=== PATIENT | male | born 1980 | race Caucasian/White ===

== ENCOUNTER 2024-10-05 04:20 | Observation (INO) | payer MEDICAID, SELFPAY ==
[2024-10-05] VITALS (21 sets, daily range): BP systolic 120–153; BP diastolic 70–94; PULSE 76–105; RESP 12–20; TEMP 36.1–37.1; O2SAT 93–100; BMI 31.9
--- NOTE | ~2024-10-05 | XR_ITS ---
AP and lateral views of the left tibia/fibula Clinical History: Trauma Findings: There is acute, oblique, mildly displaced fracture the distal fibular shaft, extending prox imally from the level ankle mortise for 6 cm. There is transverse displaced fracture through the medi al malleolus, with marked widening of the medial aspect of the ankle mortise. Soft tissues are unrema rkable. Impression: Displaced bimalleolar fractures at the ankle, as detailed above. Reviewed, dictated and finalized at location . Impression: Displaced bimalleolar fractures at the ankle, as detailed above.
--- NOTE | ~2024-10-05 | XR_ITS ---
Left ankle Technique: AP, oblique, and lateral views were obtained. Clinical History: Injury Findings: There is transverse fractures of the medial malleolus, with significant displacement and ma rked widening of the medial aspect of the ankle mortise. There is acute, oblique, mildly displaced fr acture of the distal fibular shaft extending from the level of the ankle mortise plexus 6 cm proximal to this level. No posterior malleolus fracture seen. Soft tissues are otherwise unremarkable. Impression: Acute, displaced bimalleolar fractures, with significant derangement of the ankle mortise, as detaile d above. Reviewed, dictated and finalized at location M. Impression: Acute, displaced bimalleolar fractures, with significant derangement of the ank le mortise, as detailed above.
--- NOTE | ~2024-10-05 | XR_ITS ---
INTRAOPERATIVE FLUOROSCOPY: CLINICAL HISTORY: 44 years old Male; LEFT ORIF ANKLE PROCEDURE COMMENTS: Limited intraoperative fluoroscopy of the left ankle was performed. CUMULATIVE DOSE: 5.7 mGy FLUOROSCOPY TIME: 129 seconds FINDINGS/IMPRESSION: Please refer to operative note for further details. Reviewed, dictated and finalized at location A.
--- NOTE | ~2024-10-05 | XR_ITS ---
Left foot Technique: AP, oblique, and lateral views were obtained. Clinical History: Injury Findings: No acute fracture or dislocation is seen in the foot itself. Bimalleolar fractures are note d at the ankle. Joint spaces are preserved without erosive or degenerative change. Soft tissues are u nremarkable. Impression: No acute abnormality in the foot itself. Bimalleolar fractures at the ankle are noted. [facility]. Reviewed, dictated and finalized at location . Impression: No acute abnormality in the foot itself. Bimalleolar fractures at the ankle are noted. Please see separately reported ankle radiographic series for further de tails.
--- OUTSIDE RECORDS SUMMARY | 2024-10-05 04:22 | XMS_ITS | Continuity of Care Document ---
Author Name Huma Smart Address [address] [facility] [place] [address] Organization Unknown Address [address] [place] [address] [address] [place] [address] Medications No known medications Problems No known problems
--- OUTSIDE RECORDS SUMMARY | 2024-10-05 04:22 | XMS_ITS | Continuity of Care Document ---
Author Organization [facility] Address [address] [facility] [place] [address] Phone Care Team Providers Care Cement Railroad Car Loader Name Role Phone Danny Vallecillo MD Unavailable Unavailable Advance Directives Directive Yes / No Effective Date File Name No Information Encounters Encounter Description Practice Location Reason(s) For Visit Diagnoses Date Provider Providers Copied on Encounter [facility], [address] [place], [id number], [place] tel:[phone] [facility] No Information Avel Delgado. [address] [place], [id number], [place]. tel:[phone] Family History Family Member Type Diagnosis Age At Onset No Information Payers Payer name Insurance type Covered green party ID Authoriza tion(s) No Information Social History Type Description Quantity Date Captured Comments Sex Male Smoking Status No Information Chief Complaint And Reason For Visit No Information Plan Of Treatment Date Type Action Status No Information History Of Present Illness Encounter Date Complaint History Of Prese nt Illness No Information Instructions Date Instruction Additional Infor mation No Information Assessments Type Assessment Date No Information
--- OUTSIDE RECORDS SUMMARY | 2024-10-05 04:22 | XMS_ITS | Continuity of Care Document ---
Author Name Huma Smart Address [address] [facility] [place] [address] Organization Unknown Address [address] [place], [place] [id number] [place] [address] Medications No known medications Problems No known problems
--- NOTE | 2024-10-05 04:29 | ED_ITS ---
HPI - General Adult General Chief complaint: Extremity Injury, Lower Stated complaint: ankle injury Time Seen by Provider: 10/05/24 04:23 History of Present Illness HPI narrative: Patient is a 44-year-old male who presents to the emergency department this morning status post a left ankle injury. Patient jumped off the back of his pickup truck on uneven ground and rolled his left ankle. Patient states that immediately he felt a crack. Excruciating left ankle pain and inability to bear weight on his left foot. Denies hitting his head and denies any additional injuries or concerns at this time. Related Data Allergies Allergy/AdvReac Type Severity Reaction Status Date / Time No Known Allergies Allergy Verified 10/05/24 04:29 Review of Systems 2 Review of Systems: All systems are reviewed and are negative unless stated otherwise in the HPI. Exam 2 Narrative: General: Alert, awake, afebrile, in no acute distress. HEENT: PERRL, no rhinorrhea, no post nasal drip, oropharynx clear. Neck: Trachea midline, no JVD, no lymphadenopathy. Cardiovascular: Regular rate and rhythm, no murmurs, rubs or gallops, no peripheral edema. Respiratory: Clear to auscultation bilaterally, no tachypnea, no wheezing, no rhonchi, no rubs, no respiratory distress. Abdomen: Soft, nontender, nondistended, no rebound, no guarding, no peritoneal signs. Musculoskeletal: Left ankle joint swelling and bruising noted to medial and lateral malleoli, no tenderness palpation noted along the midfoot or the base of the 5th metatarsal, no tenderness palpation over the proximal fibula, intact full range of motion at the left knee joint and left hip joint, patient is neurovascularly intact. Skin: No rashes or petechia, no signs of infection. Psychiatric: Alert and oriented, normal behavior and judgment for situation. Neurological: Alert and oriented to person, place, and time. Follows all commands. No focal deficits, speech is clear and fluent. Course Vital Signs Vital signs: Vital Signs Temperature 98.2 F 10/05/24 04:22 Pulse Rate 102 H 10/05/24 04:22 Respiratory Rate 20 10/05/24 04:22 Blood Pressure 153/85 H 10/05/24 04:22 Pulse Oximetry 95 10/05/24 04:22 Oxygen Delivery Room Air 10/05/24 04:22 Temperature 98.2 F 10/05/24 04:28 Pulse Rate 94 10/05/24 06:26 Respiratory Rate 19 10/05/24 06:26 Blood Pressure 129/84 10/05/24 06:26 Pulse Oximetry 95 10/05/24 06:26 Oxygen Delivery Room Air 10/05/24 04:22 Medical Decision Making MDM Narrative Medical decision making narrative: The patient was evaluated by myself in the emergency department. History is obtained from patient who is an independent historian and physical exam was performed. External medical records were reviewed at this time. IV was established and pertinent tests were ordered. Patient was administered a total of 8 mg of IV morphine and 4 mg IV Zofran for pain/nausea. Patient is requesting a DuoNeb breathing treatment as he states he has been out of his inhaler. Blood work was obtained and independently interpreted by me revealing no acute process. Imaging studies obtained included left foot, ankle and tib-fib x-rays which was independently interpreted by me revealing a left afshin fracture, which is pending final radiology interpretation. Differential diagnosis considerations include fractures, dislocation, ankle sprain. Comorbidities impacting this visit include none. I have evaluated and discussed social determinants of health with the patient that could potentially impact subsequent diagnosis and treatment plans. On repeat assessment of the patient, reevaluation revealed that the patient is doing well and is in no acute distress. Patient symptoms have improved since he arrived to our emergency department. Repeat vital signs were all reviewed and noted to be stable. Differential diagnosis and treatment plan were discussed with the patient at bedside. Case was discussed with the on-call orthopedic surgeon Dr. Law at 0530 who plans to take the patient to the OR for operative repair later today. Per his request, patient will be admitted to our general medicine team with him as a consult. Patient was made NPO at this time, started on maintenance fluids with normal saline at 100 cc/hour. Patient was placed in a posterior short-leg splint with stirrup at this time pending OR repair. Patient was administered 0 4 and 5 mg of IV Dilaudid at this time for pain. Case discussed with the on-call hospitalist Dr. Meyers at 0615 and he accepted admission. Patient was admitted to our general medical floor in stable condition. Vital Signs Vital Signs: Vital Signs Temperature 98.2 F 10/05/24 04:22 Pulse Rate 102 H 10/05/24 04:22 Respiratory Rate 20 10/05/24 04:22 Blood Pressure 153/85 H 10/05/24 04:22 Pulse Oximetry 95 10/05/24 04:22 Oxygen Delivery Room Air 10/05/24 04:22 Temperature 98.2 F 10/05/24 04:28 Pulse Rate 94 10/05/24 06:26 Respiratory Rate 19 10/05/24 06:26 Blood Pressure 129/84 10/05/24 06:26 Pulse Oximetry 95 10/05/24 06:26 Oxygen Delivery Room Air 10/05/24 04:22 Lab Data 10/05/24 06:23 10/05/24 06:23 Discharge Plan Discharge Clinical Impression: Closed bimalleolar fracture of left ankle Patient Disposition: Still a Patient Condition: Improved Time of Disposition: 05:33
[2024-10-05] MEDS: MORPHINE SULFATE (*CRX) 4 MG/ML INJ IV PUSH ×2 (04:34→05:35)
[2024-10-05] MEDS: ONDANSETRON INJ 4 MG/2 ML VIAL IV PUSH ×2 (04:34→05:35)
--- OUTSIDE RECORDS SUMMARY | 2024-10-05 05:03 | XMS_ITS | Continuity of Care Document ---
Author Organization [facility] Address [address] [facility] [place] [address] Phone Care Team Providers Care Refrigeration Installer Name Role Phone Danny Vallecillo MD Unavailable Unavailable Advance Directives Directive Yes / No Effective Date File Name No Information Encounters Encounter Description Practice Location Reason(s) For Visit Diagnoses Date Provider Providers Copied on Encounter [facility], [address] [place], [id number], [place] tel:[phone] [facility] No Information Avel Delgado. [address] [place], [id number], [place]. tel:[phone] Family History Family Member Type Diagnosis Age At Onset No Information Payers Payer name Insurance type Covered alliance party ID Authoriza tion(s) No Information Social [...]
[2024-10-05] MEDS: SODIUM CHLORIDE 0.9% IV 1,000 ML 100 ML IV CONT (06:19)
[2024-10-05] MEDS: HYDROmorphone HCL INJ (*CRX) 2 MG/ML VIAL 0.5 MG IV PUSH ×2 (06:19→20:24)
[2024-10-05 06:28] LABS: Basophils Percent Auto 0.4 % (0.2-1.2); Eosinophils Absolute Auto 0.1 K/mm3 (0-0.3); Eosinophils Percent Auto 1.2 % (0-4.4); Hematocrit 40.2 % (42.0-52.0); Hemoglobin 13.1 g/dL (14.0-18.0); Immature Granulocyte Absolute 0.02 K/mm3 (0.00-0.031); Immature Granulocyte Percent A 0.3 % (0-0.5); Lymphocytes Absolute Auto 1.01 K/mm3 (0.9-3.2); Mean Corpuscular HGB Conc 32.6 g/dl (32-36); Mean Corpuscular Hemoglobin 29.2 pg (26-34); Mean Corpuscular Volume 89.5 fl (80-100); Mean Platelet Volume 9.6 fl (7.4-10.4); Monocytes Absolute Auto 0.9 K/mm3 (0.1-0.6); Neutrophils Absolute Auto 5.7 K/mm3 (1.3-6.7); Neutrophils Percent Auto 73.1 % (45.5-73.1); Platelet Count Result 207 k/mm3 (150-375); Red Blood Count 4.49 M/mm3 (4.6-6.20); Red Cell Distribution Width 13.3 % (11.5-14.5); White Blood Count 7.8 K/mm3 (4.5-10.0)
[2024-10-05 06:51] LABS: Alanine Aminotransferase 31 U/L (6-50); Albumin Level 3.8 g/dL (3.5-5.1); Alkaline Phosphatase 75 U/L (38-126); Anion Gap 7 mmol/L (4-12); Aspartate Amino Transferase 47 U/L (17-59); Bilirubin,Total 0.6 mg/dL (0.2-1.3); Blood Urea Nitrogen 13 mg/dL (9-20); Calcium 8.1 mg/dL (8.4-10.2); Carbon Dioxide 26 mmol/L (22-30); Chloride 101 mmol/L (98-107); Estimated CRCL calculation 111 ml/min; Estimated Glomerular Filt Rate > 60; Glucose 103 mg/dL (65-110); Magnesium 2.2 mg/dL (1.6-2.3); Sodium 134 mmol/L (137-145)
--- OUTSIDE RECORDS SUMMARY | 2024-10-05 08:15 | XMS_ITS | Continuity of Care Document ---
Author Organization [facility] Address [address] [facility] [[email or web address] [place] [address] Phone Care Team Providers Care Body Art Technician Name Role Phone Danny Vallecillo MD Unavailable Unavailable Advance Directives Directive Yes / No Effective Date File Name No Information Encounters Encounter Description Practice Location Reason(s) For Visit Diagnoses Date Provider Providers Copied on Encounter [facility], [address] [place], [id number], [place] tel:[phone] [facility] No Information Avel Delgado. [address] [place], [id number], [place]. tel:[phone] Family History Family Member Type Diagnosis Age [...]
[2024-10-05] MEDS: IPRATROPIUM 0.5 MG/ALBUTEROL SULFATE 2.5 MG AMPUL.NEB 3 ML INHALATION (08:22)
--- NOTE | 2024-10-05 08:43 | P.HP_ITS ---
H&P: HPI History of Present Illness Date/Time: 10/05/24 08:43 Chief Complaint: Left ankle pain Narrative: Patient is a 44-year-old male with history of asthma, present ED with a chief complaint of left ankle pain. Patient jump of pickup truck and sustained left ankle pain. The pain was severe, patient could not bear weight on the left food. Therefore patient came to ED for evaluation treatment. Patient also complaining of cough with thick phlegm in more than a week, denies fever or chills. And patient also complained of wheezing intermittently. Patient has history of asthma Patient denies headache, chest pain, shortness breast, abdomen pain, nausea vomiting diarrhea dysuria. Upon arrival to ED, patient was afebrile, blood pressure stable, no O2 desaturation on room air, CBC showed hemoglobin 13.1 chemistry reveals sodium 134, Ankle x-ray showed acute, displaced bimalleolar fractures, with significant derangement of the ankle mortise, PMFSH Family History Family History (Updated 10/05/24 @ 10:05 by Wendy Emery RN) Father Cancer Diabetes mellitus Social History Social History Smoking status: Former smoker Tobacco type: cigarettes Alcohol intake: current Drinks per week: 2 Substance use: former Substance use type: crack/cocaine, hallucinogens and methamphetamine Last use: 10/05/2022 Do You Feel Safe in your Home?: Yes Lack of Transportation: No Lack of Food: Never True Current Housing: I Have Housing Concerned About Future Housing: No Difficulty Paying Gas/Electric Bills: No Difficulty Paying for Meds: No Currently Unemployed: No Education: Don't Know Difficulty w/ Childcare or Family Care: No Spiritual care concerns: No Meds Home Medications and Allergies Home Medications ?Medication ?Instructions ?Recorded ?Confirmed ?Type aspirin 81 mg capsule 81 mg PO DAILY 10/05/24 10/05/24 History atorvastatin 40 mg tablet (Lipitor) 40 mg PO DAILY 10/05/24 10/05/24 History Allergies Allergy/AdvReac Type Severity Reaction Status Date / Time barbeque Allergy Vomiting Uncoded 10/05/24 10:18 Vital Signs Vital Signs - 24 hr 10/05/24 04:22 10/05/24 04:28 10/05/24 06:26 Temperature 98.2 F 98.2 F Pulse Rate 102 H 99 94 Respiratory Rate 20 18 19 Blood Pressure 153/85 H 153/85 H 129/84 Pulse Oximetry 95 95 95 Oxygen Delivery Room Air Exam Narrative: GENERAL: Pleasant, in no acute distress. Well-nourished. - EYES: EOMI. Anicteric. - HENT: Moist mucous membranes. - LUNGS: Clear to auscultation bilateral ly, no wheezing, rhonchi, or rales. - CARDIOVASCULAR: Regular rate and rhyth m. No murmur. No JVD. - ABDOMEN: Soft, non-tender and non-dist ended. No palpable masses. - EXTREMITIES: Restricted movement of l eft ankle because of pain. No edema. Peripheral pulses 2+. Non-tender. - NEUROLOGIC: No focal neurological defi cits. CN II-XII grossly intact. - PSYCHIATRIC: Awake, Alert and oriented x 3. Appropriate mood and affect. - SKIN: No rashes or lesions. Warm. - LYMPH: No cervical lymphadenopathy. H&P: Results Labs Labs: Short CBC 10/05/24 Range/Units 06:23 WBC 7.8 (4.5-10.0) K/mm3 Hgb 13.1 L (14.0-18.0) g/dL Hct 40.2 L (42.0-52.0) % Plt Count 207 (150-375) k/mm3 BMP 10/05/24 06:23 Sodium 134 L Potassium 4.0 Chloride 101 Carbon Dioxide 26 BUN 13 Creatinine 0.96 Glucose 103 Calcium 8.1 L Liver Function 10/05/24 Range/Units 06:23 Total Bilirubin 0.6 (0.2-1.3) mg/dL AST 47 (17-59) U/L ALT 31 (6-50) U/L Alkaline Phosphatase 75 (38-126) U/L Albumin 3.8 (3.5-5.1) g/dL Assessment and Plan Assessment and plan (1) Closed bimalleolar fracture of left ankle: Code(s): S82.842A - Displaced bimalleolar fracture of left lower leg, initial encounter for closed fracture Status: Acute (2) Hyponatremia: Code(s): E87.1 - Hypo-osmolality and hyponatremia Status: Acute (3) Anemia: Code(s): D64.9 - Anemia, unspecified Status: Acute (4) Acute bacterial bronchitis: Code(s): J20.8 - Acute bronchitis due to other specified organisms; B96.89 - Other specified bacterial agents as the cause of diseases classified elsewhere Status: Acute (5) Asthma: Code(s): J45.909 - Unspecified asthma, uncomplicated Status: Acute Plan Left ankle fracture X-ray showed acute, displaced bimalleolar fractures, with significant derangement of the ankle mortise,. Optimize pain management Consult orthopedic surgeon for evaluation treatment Start PT OT when is cleared by orthopedic surgeon Acute bacterial bronchitis Patient has been having productive cough more than a week, patient also has intermittent wheezing Possible bacterial bronchitis Will start azithromycin 500 mg IV daily Albuterol nebulizer q.6 hours scheduled Hyponatremia Sodium 134 Marginally low Follow-up BMP Anemia hemoglobin 13.1 Marginally low No obvious bleeding Follow-up CBC Hospitalist MIPS Advance Care Plan I have confirmed that the patient's Advanced Care Plan is present, code status is documented, or surrogate decision maker is listed in patient medical record.: Yes Medication Reconciliation The patient is not eligible for med reconciliation; the patient is in a emergent medical situation where delaying treatment would jeopardize the patients health.: Yes
--- NOTE | 2024-10-05 09:59 | ADMGEN ---
This patient, [address], was admitted to [address] [facility] Surg Room 323-02. Patient/family oriented to hospital policies and general routines including ID bracelet, bed and alarms, visiting hours, pain management, procedures, bathroom and other care routines, personal items, smoking policy, room service/diet, and visiting hours. Information on how to activate the Rapid Response Team has been discussed. Patient/Family are encouraged to report perceived risks to care and to ask questions if they do not understand what they are told or what they should do. welder 2nd shift got report from ER.
--- NOTE | 2024-10-05 11:07 | PC.NURSE ---
To OR per [ ], IV [ ]. Report given to [ROLLY].
--- NOTE | 2024-10-05 12:18 | WPDANESEPPF ---
Anes - Initial Pre Proc Eval Procedure: Operation Date: 10/05/24 12:30 Proposed Procedures p Open Reduction Internal Fixation Left Bimalleolar Ankle Fracture(Left) - Shravan Law MD Date/Time: 10/05/24 12:18 Surgeon: John Nix MD Pre Op Diagnosis: left bimalleolar ankle fracture,plan for or today Patient Data Age: 44 Gender: M Height: 1.8 m Weight: 103.9 kg Last Vital Signs Temp 37.1 C 10/05/24 11:41 Pulse 80 10/05/24 11:41 Resp 20 10/05/24 11:41 BP 126/70 10/05/24 11:41 Pulse Ox 93 10/05/24 11:41 O2 Del Method Room Air 10/05/24 11:41 Allergies Allergy/AdvReac Type Severity Reaction Status Date / Time barbeque Allergy Vomiting Uncoded 10/05/24 10:18 Home Medications ?Medication ?Instructions ?Recorded ?Confirmed ?Type aspirin 81 mg capsule 81 mg PO DAILY 10/05/24 10/05/24 History atorvastatin 40 mg tablet (Lipitor) 40 mg PO DAILY 10/05/24 10/05/24 History Laboratory Tests 10/05/24 10/05/24 06:23 06:43 WBC 7.8 K/mm3 (4.5-10.0) RBC 4.49 L M/mm3 (4.6-6.20) Hgb 13.1 L g/dL (14.0-18.0) Hct 40.2 L % (42.0-52.0) MCV 89.5 fl (80-100) MCH 29.2 pg (26-34) MCHC 32.6 g/dl (32-36) RDW 13.3 % (11.5-14.5) Plt Count 207 k/mm3 (150-375) MPV 9.6 fl (7.4-10.4) Immature Gran % (Auto) 0.3 % (0-0.5) Neut % (Auto) 73.1 % (45.5-73.1) Lymph % (Auto) 13.0 L % (18.3-44.2) [place] % (Auto) 12.0 H % (2.6-8.5) Eos % (Auto) 1.2 % (0-4.4) Baso % (Auto) 0.4 % (0.2-1.2) Lymph # (Auto) 1.01 K/mm3 (0.9-3.2) [place] # (Auto) 0.9 H K/mm3 (0.1-0.6) Eos # (Auto) 0.1 K/mm3 (0-0.3) Baso # (Auto) 0.0 K/mm3 (0.0-0.1) Abs Immat Gran (auto) 0.02 K/mm3 (0.00-0.031) Absolute Neuts (auto) 5.7 K/mm3 (1.3-6.7) Absolute Nucleated RBC 0.000 K/mm3 (0.0-0.012) Nucleated RBC % 0.0 % (0.0-0.2) Sodium 134 L mmol/L (137-145) Potassium 4.0 mmol/L (3.4-5.0) Chloride 101 mmol/L (98-107) Carbon Dioxide 26 mmol/L (22-30) Anion Gap 7 mmol/L (4-12) BUN 13 mg/dL (9-20) Creatinine 0.96 mg/dL (0.7-1.3) Estim Creat Clear Calc 111 ml/min Estimated GFR > 60 (59 - ) Glucose 103 mg/dL (65-110) Calcium 8.1 L mg/dL (8.4-10.2) Magnesium 2.2 mg/dL (1.6-2.3) Total Bilirubin 0.6 mg/dL (0.2-1.3) AST 47 U/L (17-59) ALT 31 U/L (6-50) Alkaline Phosphatase 75 U/L (38-126) Total Protein 7.0 g/dL (6.3-8.2) Albumin 3.8 g/dL (3.5-5.1) Blood Type O Positive Antibody Screen Negative Patient hx anesthesia problems: none Family hx anesthesia problems: none Results Review: All pre-operative results and documents have been reviewed as part of the pre-operative evaluation. [facility] Family History Family History Father Cancer Diabetes mellitus Social History Social History Smoking status: Former smoker Tobacco type: cigarettes Alcohol intake: current Drinks per week: 2 Substance use: former Substance use type: crack/cocaine, hallucinogens and methamphetamine Last use: 10/05/2022 Do You Feel Safe in your Home?: Yes Lack of Transportation: No Lack of Food: Never True Current Housing: I Have Housing Concerned About Future Housing: No Difficulty Paying Gas/Electric Bills: No Difficulty Paying for Meds: No Currently Unemployed: No Education: Don't Know Difficulty w/ Childcare or Family Care: No Spiritual care concerns: No Anes - Eval Final PreProcedure Day of Procedure 10/05/24 12:18 Patient weight: obese Heart: regular rate and rhythm Lungs: decreased breath sounds Airway: Mallampati scale class III Neurological: alert and oriented Last oral intake: >/= 8 hours ASA classification: III Emergent: no Anesthetic plan: proceed Anesthesia type and monitoring: general LMA and standard monitoring Results Review: All pre-operative results and documents have been reviewed as part of the pre-operative evaluation. Informed Consent: The patient's anesthetic plan and its attendant risks and benefits were discussed with the patient/family/POA. Questions were solicited and answers provided to the satisfaction of the patient/family/POA.
--- NOTE | 2024-10-05 12:20 | P.CONOP_ITS ---
Assessment and Plan Assessment and plan (1) Closed bimalleolar fracture of left ankle: Code(s): S82.842A - Displaced bimalleolar fracture of left lower leg, initial encounter for closed fracture Status: Acute Assessment and Plan: Patient has a displaced bimalleolar fracture of his left leg. I discussed treatment options with him risks benefits limitations and alternatives. Clearly he would benefit from operative intervention. I have discussed this risks benefits limitations and alternatives in detail. History of Present Illness HPI Consult date: 10/05/24 Chief complaint: left bimalleolar ankle fracture,plan for or today Review of Systems 2 Musculoskeletal: Musculoskeletal: Reports arthralgias, Reports joint swelling and Reports stiffness Neurologic: Reports abnormal gait [facility] Family History Family History Father Cancer Diabetes mellitus Social History Social History Smoking status: Former smoker Tobacco type: cigarettes Alcohol intake: current Drinks per week: 2 Substance use: former Substance use type: crack/cocaine, hallucinogens and methamphetamine Last use: 10/05/2022 Do You Feel Safe in your Home?: Yes Lack of Transportation: No Lack of Food: Never True Current Housing: I Have Housing Concerned About Future Housing: No Difficulty Paying Gas/Electric Bills: No Difficulty Paying for Meds: No Currently Unemployed: No Education: Don't Know Difficulty w/ Childcare or Family Care: No Spiritual care concerns: No Meds Home Medications and Allergies Home Medications ?Medication ?Instructions ?Recorded ?Confirmed ?Type aspirin 81 mg capsule 81 mg PO DAILY 10/05/24 10/05/24 History atorvastatin 40 mg tablet (Lipitor) 40 mg PO DAILY 10/05/24 10/05/24 History Allergies Allergy/AdvReac Type Severity Reaction Status Date / Time barbeque Allergy Vomiting Uncoded 10/05/24 10:18 Vital Signs Vital Signs - 24 hr 10/05/24 04:22 10/05/24 04:28 10/05/24 06:26 Temperature 98.2 F 98.2 F Pulse Rate 102 H 99 94 Respiratory Rate 20 18 19 Blood Pressure 153/85 H 153/85 H 129/84 Pulse Oximetry 95 95 95 Oxygen Delivery Room Air 10/05/24 11:41 Temperature 98.7 F Pulse Rate 80 Respiratory Rate 20 Blood Pressure 126/70 Pulse Oximetry 93 Oxygen Delivery Room Air Exam 2 Narrative: Patient has swelling and pain left ankle still. Neurological wiggle his toes he has pain with any manipulation. Results Labs 10/05/24 06:23 10/05/24 06:23 Labs: Abnormal lab results 10/05/24 Range/Units 06:23 RBC 4.49 L (4.6-6.20) M/mm3 Hgb 13.1 L (14.0-18.0) g/dL Hct 40.2 L (42.0-52.0) % Lymph % (Auto) 13.0 L (18.3-44.2) % [place] % (Auto) 12.0 H (2.6-8.5) % [place] # (Auto) 0.9 H (0.1-0.6) K/mm3 Sodium 134 L (137-145) mmol/L Calcium 8.1 L (8.4-10.2) mg/dL H & H 10/05/24 Range/Units 06:23 Hgb 13.1 L (14.0-18.0) g/dL Hct 40.2 L (42.0-52.0) % All other labs normal.
[2024-10-05] MEDS: HYDROmorphone HCL INJ (*CRX) 1 MG/ML SYR IV PUSH (12:24)
--- NOTE | 2024-10-05 12:28 | WPDHPUPDATE1 ---
History and Physical Update Update Date/Time: 10/05/24 12:28 History and Physical has been reviewed, including an updated exam of the patient. There are NO changes in the patient's condition. Risks, benefits, and alternatives have been discussed and questions answered. Patient agrees to proceed with procedure.
[2024-10-05] MEDS: ceFAZolin 2 GM/D5W 50 ML 2 GM/50 ML BAG IVPB (13:14)
--- NOTE | 2024-10-05 14:30 | W.PM.PROC2 ---
Procedure Note - Detailed Date of Procedure 10/05/24 Pre-op Diagnosis LEFT bimalleolar ankle fracture,plan for or today Post-op Diagnosis Same Procedure Performed Open reduction internal fixation bimalleolar fracture Surgeon Shravan Law MD Zinc Chloride Operator Brigitte Garcia Anesthesia General Findings Bimalleolar ankle fracture LEFT Description of Procedure Patient brought to operating room #7. A general anesthetic was administered. He was sterilely prepped and draped in usual manner. He had very large legs. This made it very difficult to do the procedure. A longitudinal incision made. Dissection carried down to the fibula. I began laterally. The fracture was identified held together with lobster claw. An 8 hole plate was then placed. It was very difficult, almost impossible to place an interfragmentary screw, because of the angle of the fracture. I then proceeded medially. Dissection carried down to the fracture. A 4-0 cannulated screw placed. X-rays in the mortise and lateral planes demonstrate near anatomic alignment of the fracture. Fracture was checked for stability under the C-arm. A noted to be stable. Estimated Blood Loss 150 Urine Output 430 Packing No Pathology None sent Complications No immediate complications Condition Stable Disposition PACU [facility] Billing Surgery - Charge Forward: Surgery Billing ([id number] ORIF Bimalleolar Ankle Fracture)
[2024-10-05] MEDS: LACTATED RINGERS 1,000 ML 30 ML IV CONT (14:51)
[2024-10-05] MEDS: HYDROmorphone HCL INJ (*CRX) 1 MG/ML SYR 0.5 MG IV PUSH ×3 (15:20→16:01)
--- NOTE | 2024-10-05 16:02 | PC.NURSE ---
Returned from OR per [ ]. Report received from [Molly ].
[2024-10-05] MEDS: AZITHROMYCIN 500 MG/NS 250 ML 500 MG/250 ML BAG 250 MG IVPB (16:23)
[2024-10-05] MEDS: ALBUTEROL SULFATE NEB 2.5 MG/3 ML INH INHALATION ×2 (16:33→20:17)
--- NOTE | 2024-10-05 16:34 | PCRCNOTE ---
Pt was in OR during 1400 Tx. Nurse called and said that patient was back in room and requesting 1400 Tx.
[2024-10-05] MEDS: HYDROcodone/acetaminophen (*CRX) 7.5-325 MG TABLET 1 TAB PO ×2 (16:50→22:12)
[2024-10-05] MEDS: MORPHINE SULFATE (*CRX) 2 MG/ML INJ 1 MG IV PUSH (18:29)
[2024-10-06] VITALS (15 sets, daily range): BP systolic 127–143; BP diastolic 76–89; PULSE 84–103; RESP 14–20; TEMP 36.2–37.3; O2SAT 96–98
[2024-10-06] MEDS: HYDROmorphone HCL INJ (*CRX) 2 MG/ML VIAL 0.5 MG IV PUSH ×5 (00:41→17:42)
[2024-10-06] MEDS: ALBUTEROL SULFATE NEB 2.5 MG/3 ML INH INHALATION ×4 (02:17→21:00)
[2024-10-06] MEDS: HYDROcodone/acetaminophen (*CRX) 7.5-325 MG TABLET 1 TAB PO ×2 (02:26→08:57)
--- NOTE | 2024-10-06 08:43 | P.PNIM_ITS ---
Progress Note: A&P Assessment and Plan (1) Closed bimalleolar fracture of left ankle: Code(s): S82.842A - Displaced bimalleolar fracture of left lower leg, initial encounter for closed fracture Status: Acute (2) Hyponatremia: Code(s): E87.1 - Hypo-osmolality and hyponatremia Status: Acute (3) Anemia: Code(s): D64.9 - Anemia, unspecified Status: Acute (4) Acute bacterial bronchitis: Code(s): J20.8 - Acute bronchitis due to other specified organisms; B96.89 - Other specified bacterial agents as the cause of diseases classified elsewhere Status: Acute (5) Asthma: Code(s): J45.909 - Unspecified asthma, uncomplicated Status: Acute Plan Left ankle fracture X-ray showed acute, displaced bimalleolar fractures, with significant derangement of the ankle mortise,. 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 Well-nourished. - EYES: EOMI. Anicteric. - HENT: Moist mucous membranes. - LUNGS: Clear to auscultation bilateral ly, no wheezing, rhonchi, or rales. - CARDIOVASCULAR: Regular rate and rhyth m. No murmur. No JVD. - ABDOMEN: Soft, non-tender and non-dist ended. No palpable masses. - EXTREMITIES: Restricted movement of l eft ankle because of pain. No edema. Peripheral pulses 2+. Non-tender. - NEUROLOGIC: No focal neurological defi cits. CN II-XII grossly intact. - PSYCHIATRIC: Awake, Alert and oriented x 3. Appropriate mood and affect. - SKIN: No rashes or lesions. Warm. - LYMPH: No cervical lymphadenopathy. Objective Data Vital Signs Vital Signs: Vital Signs - 24 hr 10/05/24 11:41 10/05/24 14:25 10/05/24 14:40 Temperature 98.7 F 97.9 F 98.0 F Pulse Rate 80 90 92 Respiratory Rate 20 20 20 Blood Pressure 126/70 134/84 130/80 Pulse Oximetry 93 94 93 Oxygen Delivery Room Air Oxygen Flow Rate 10/05/24 14:51 10/05/24 15:05 10/05/24 15:15 Temperature 97.1 F L Pulse Rate 105 H 76 Respiratory Rate 16 18 Blood Pressure 127/79 146/79 H Pulse Oximetry 97 100 Oxygen Delivery Simple Face Mask Simple Face Mask Room Air Oxygen Flow Rate 6 6 10/05/24 15:20 10/05/24 15:35 10/05/24 15:50 Temperature Pulse Rate 79 84 85 Respiratory Rate 18 16 14 Blood Pressure 149/84 H 142/85 H 143/85 H Pulse Oximetry 93 96 93 Oxygen Delivery Room Air Room Air Room Air Oxygen Flow Rate 10/05/24 16:00 10/05/24 16:05 10/05/24 16:36 Temperature 98.0 F 97.0 F L Pulse Rate 98 82 92 Respiratory Rate 20 14 16 Blood Pressure 150/80 H 143/94 H Pulse Oximetry 96 93 Oxygen Delivery Room Air Oxygen Flow Rate 10/05/24 16:44 10/05/24 17:10 10/05/24 18:10 Temperature 98.0 F 97.9 F Pulse Rate 102 H 90 Respiratory Rate 16 20 20 Blood Pressure 128/78 120/89 Pulse Oximetry 94 99 Oxygen Delivery Oxygen Flow Rate 10/05/24 20:17 10/05/24 20:25 10/05/24 20:30 Temperature 97.1 F L Pulse Rate 90 88 Respiratory Rate 12 Blood Pressure 132/77 Pulse Oximetry 96 97 Oxygen Delivery Room Air Oxygen Flow Rate 10/05/24 20:33 10/06/24 00:00 10/06/24 02:19 Temperature 97.1 F L Pulse Rate 97 103 H 91 Respiratory Rate 16 17 Blood Pressure 133/82 Pulse Oximetry 97 Oxygen Delivery Oxygen Flow Rate 10/06/24 02:25 10/06/24 04:00 Temperature 97.7 F Pulse Rate 92 87 Respiratory Rate 17 14 Blood Pressure 133/76 Pulse Oximetry 96 Oxygen Delivery Oxygen Flow Rate Intake/Output Intake/Output: Intake & Output 10/03/24 10/04/24 10/05/24 10/06/24 23:59 23:59 23:59 23:59 Intake Total 1150 620 Output Total 2510 1000 Balance -1360 -380 Meds/Results Medications: Active Medications Generic Name Dose Route Start Last Admin Trade Name Freq PRN Reason Stop Dose Admin Acetaminophen 650 mg 10/05/24 20:07 Acetaminophen 325 Mg Tablet PO Q6H PRN Mild Pain (1-3) or Fever Hydrocodone Bitart/Acetaminophen 1 tab 10/05/24 16:34 10/06/24 02:26 Hydrocodone/Acetaminophen (*Crx) 7.5-325 Mg Tablet PO 1 tab Q4H PRN Administration Pain Rated 7-10 Hydrocodone Bitart/Acetaminophen 1 tab 10/05/24 20:07 Hydrocodone/Acetaminophen (*Crx) 5-325 Mg Tablet PO Q6H PRN Pain Rated 4-6 Albuterol 2.5 mg 10/05/24 14:00 10/06/24 08:39 Albuterol Sulfate Neb 2.5 Mg/3 Ml Inh INHALATION 2.5 mg Q6HRT MARIE Administration Aspirin 81 mg 10/06/24 08:00 Aspirin 81 Mg Chewable Tablet PO DAILY@0800 [facility] Atorvastatin Calcium 40 mg 10/06/24 09:00 Atorvastatin 40 Mg Tablet PO DAILY MARIE Hydromorphone HCl 0.5 mg 10/05/24 20:07 10/06/24 06:38 Hydromorphone Hcl Inj (*Crx) 2 Mg/Ml Vial IV PUSH 0.5 mg Q3H PRN Administration Breakthrough Pain Azithromycin 500 mg in 250 mls @ 250 mls/hr 10/05/24 12:10 10/05/24 17:23 Zithromax IVPB Infused Q24H MARIE Infusion Radiology Results: ITS Impressions Tibia/Fibula X-Ray 10/05/24 05:31 Impression: Displaced bimalleolar fractures at the ankle, as detailed above. Ankle X-Ray 10/05/24 05:32 Impression: Acute, displaced bimalleolar fractures, with significant derangement of the ankle mortise, as detailed above. Foot X-Ray 10/05/24 05:33 Impression: No acute abnormality in the foot itself. Bimalleolar fractures at the ankle are noted. Please see separately reported ankle radiographic series for further details.
[2024-10-06] MEDS: ASPIRIN 81 MG CHEWABLE TABLET PO (08:57)
[2024-10-06] MEDS: ATORVASTATIN 40 MG TABLET PO (08:57)
--- NOTE | 2024-10-06 09:39 | PCPTNOTE ---
Attempted PT evaluation. Pt refused due to pain. Nursing present in room. Will follow.
[2024-10-06 09:42] LABS: Basophils Percent Auto 0.2 % (0.2-1.2); Hematocrit 39.4 % (42.0-52.0); Hemoglobin 12.6 g/dL (14.0-18.0); Immature Granulocyte Absolute 0.04 K/mm3 (0.00-0.031); Immature Granulocyte Percent A 0.4 % (0-0.5); Lymphocytes Absolute Auto 1.09 K/mm3 (0.9-3.2); Mean Corpuscular Hemoglobin 29.5 pg (26-34); Mean Corpuscular Volume 92.3 fl (80-100); Mean Platelet Volume 9.9 fl (7.4-10.4); Monocytes Absolute Auto 0.6 K/mm3 (0.1-0.6); Monocytes Percent Auto 5.9 % (2.6-8.5); Neutrophils Absolute Auto 9.1 K/mm3 (1.3-6.7); Neutrophils Percent Auto 83.5 % (45.5-73.1); Platelet Count Result 213 k/mm3 (150-375); Red Blood Count 4.27 M/mm3 (4.6-6.20); Red Cell Distribution Width 13.3 % (11.5-14.5); White Blood Count 10.9 K/mm3 (4.5-10.0)
[2024-10-06 10:03] LABS: Anion Gap 7 mmol/L (4-12); Blood Urea Nitrogen 10 mg/dL (9-20); Calcium 8.3 mg/dL (8.4-10.2); Carbon Dioxide 28 mmol/L (22-30); Chloride 98 mmol/L (98-107); Estimated CRCL calculation 109 ml/min; Estimated Glomerular Filt Rate > 60; Glucose 132 mg/dL (65-110); Potassium 3.7 mmol/L (3.4-5.0); Sodium 133 mmol/L (137-145)
[2024-10-06] MEDS: AZITHROMYCIN 500 MG/NS 250 ML 500 MG/250 ML BAG 250 MG IVPB (12:13)
[2024-10-06] MEDS: oxyCODONE/ACETAMINOPHEN (*CRX) 10-325 MG TABLET 1 TAB PO ×3 (14:17→23:58)
[2024-10-07] VITALS (11 sets, daily range): BP systolic 118–139; BP diastolic 79–94; PULSE 78–98; RESP 16–20; TEMP 36.2–36.6; O2SAT 95–97
[2024-10-07] MEDS: HYDROmorphone HCL INJ (*CRX) 2 MG/ML VIAL 0.5 MG IV PUSH (00:59)
[2024-10-07] MEDS: ALBUTEROL SULFATE NEB 2.5 MG/3 ML INH INHALATION ×3 (02:33→13:58)
[2024-10-07] MEDS: ACETAMINOPHEN/ASPIRIN/CAFFEINE 250-250-65 MG TABLET 2 TABLET PO (05:00)
[2024-10-07] MEDS: oxyCODONE/ACETAMINOPHEN (*CRX) 10-325 MG TABLET 1 TAB PO ×2 (05:10→14:25)
[2024-10-07 08:06] LABS: Basophils Percent Auto 0.3 % (0.2-1.2); Eosinophils Absolute Auto 0.1 K/mm3 (0-0.3); Eosinophils Percent Auto 1.1 % (0-4.4); Hemoglobin 11.8 g/dL (14.0-18.0); Immature Granulocyte Absolute 0.05 K/mm3 (0.00-0.031); Immature Granulocyte Percent A 0.8 % (0-0.5); Lymphocytes Percent Auto 26.1 % (18.3-44.2); Mean Corpuscular HGB Conc 31.9 g/dl (32-36); Mean Corpuscular Hemoglobin 29.3 pg (26-34); Mean Corpuscular Volume 91.8 fl (80-100); Mean Platelet Volume 9.5 fl (7.4-10.4); Monocytes Absolute Auto 0.7 K/mm3 (0.1-0.6); Monocytes Percent Auto 11.1 % (2.6-8.5); Neutrophils Percent Auto 60.6 % (45.5-73.1); Platelet Count Result 200 k/mm3 (150-375); Red Blood Count 4.03 M/mm3 (4.6-6.20); Red Cell Distribution Width 13.4 % (11.5-14.5); White Blood Count 6.5 K/mm3 (4.5-10.0)
[2024-10-07 08:13] LABS: Anion Gap 5 mmol/L (4-12); Blood Urea Nitrogen 11 mg/dL (9-20); Calcium 8.3 mg/dL (8.4-10.2); Carbon Dioxide 30 mmol/L (22-30); Chloride 97 mmol/L (98-107); Estimated CRCL calculation 115 ml/min; Estimated Glomerular Filt Rate > 60; Glucose 100 mg/dL (65-110); Potassium 4.2 mmol/L (3.4-5.0); Sodium 132 mmol/L (137-145)
[2024-10-07] MEDS: ASPIRIN 81 MG CHEWABLE TABLET PO (09:02)
[2024-10-07] MEDS: ATORVASTATIN 40 MG TABLET PO (09:02)
[2024-10-07] MEDS: HYDROcodone/acetaminophen (*CRX) 5-325 MG TABLET 1 TAB PO (10:26)
[2024-10-07] MEDS: AZITHROMYCIN 500 MG/NS 250 ML 500 MG/250 ML BAG 250 MG IVPB (11:50)
--- NOTE | 2024-10-07 12:07 | P.DS_ITS ---
DS: Admitting Diagnosis Discharge Date 10/07/2024 Admitting Diagnosis Left ankle fracture DS: Discharge Diagnosis Discharge Diagnosis (1) Closed bimalleolar fracture of left ankle: Code(s): S82.842A - Displaced bimalleolar fracture of left lower leg, initial encounter for closed fracture Status: Acute (2) Hyponatremia: Code(s): E87.1 - Hypo-osmolality and hyponatremia Status: Acute (3) Anemia: Code(s): D64.9 - Anemia, unspecified Status: Acute (4) Acute bacterial bronchitis: Code(s): J20.8 - Acute bronchitis due to other specified organisms; B96.89 - Other specified bacterial agents as the cause of diseases classified elsewhere Status: Acute (5) Asthma: Code(s): J45.909 - Unspecified asthma, uncomplicated Status: Acute DS: Summary Hospital Course Hospital Course: # Left ankle fracture X-ray showed acute, displaced bimalleolar fractures, with significant derangement of the ankle mortise,. Optimize pain management Consult orthopedic surgeon for evaluation treatment Status post Open reduction internal fixation bimalleolar fracture 10/05/2024 PT OT evaluated will need to be nonweightbearing on left leg # Acute bacterial bronchitis Patient has been having productive cough more than a week, patient also has intermittent wheezing Possible bacterial bronchitis On azithromycin 500 mg IV daily Albuterol nebulizer q.6 hours scheduled Finish azithromycin course. Improving # Hyponatremia Sodium 134 Marginally low Follow-up BMP # Anemia hemoglobin 13.1 Marginally low No obvious bleeding Follow-up CBC Time Spent with Patient Time attestation: Total time spent providing and/or coordinating discharge services: 35 minutes Exam Narrative: GENERAL: Pleasant, in no acute distress. Well-nourished. - EYES: EOMI. Anicteric. - HENT: Moist mucous membranes. - LUNGS: Clear to auscultation bilateral ly, no wheezing, rhonchi, or rales. - CARDIOVASCULAR: Regular rate and rhyth m. No murmur. No JVD. - ABDOMEN: Soft, non-tender and non-dist ended. No palpable masses. - EXTREMITIES: Left ankle with boot. N o edema. Peripheral pulses 2+. Non- tender. - NEUROLOGIC: No focal neurological defi cits. CN II-XII grossly intact. - PSYCHIATRIC: Awake, Alert and oriented x 3. Appropriate mood and affect. - SKIN: No rashes or lesions. Warm. - LYMPH: No cervical lymphadenopathy. DS: Data Data Completed and Pending Labs on day of discharge: Labs from last 24 hours 10/07/24 07:52 WBC 6.5 RBC 4.03 L Hgb 11.8 L Hct 37.0 L MCV 91.8 MCH 29.3 MCHC 31.9 L RDW 13.4 Plt Count 200 MPV 9.5 Immature Gran % (Auto) 0.8 H Neut % (Auto) 60.6 Lymph % (Auto) 26.1 [place] % (Auto) 11.1 H Eos % (Auto) 1.1 Baso % (Auto) 0.3 Lymph # (Auto) 1.70 [place] # (Auto) 0.7 H Eos # (Auto) 0.1 Baso # (Auto) 0.0 Abs Immat Gran (auto) 0.05 H Absolute Neuts (auto) 4.0 Absolute Nucleated RBC 0.000 Nucleated RBC % 0.0 Sodium 132 L Potassium 4.2 Chloride 97 L Carbon Dioxide 30 Anion Gap 5 BUN 11 Creatinine 0.89 Estim Creat Clear Calc 115 Estimated GFR > 60 Glucose 100 Calcium 8.3 L Procedures/Treatments: Procedure Note - Detailed Date of Procedure 10/05/24 Pre-op Diagnosis LEFT bimalleolar ankle fracture,plan for or today Post-op Diagnosis Same Procedure Performed Open reduction internal fixation bimalleolar fracture Surgeon Shravan Law MD Preservative Filler Machine Operator Brigitte Garcia Anesthesia General Findings Bimalleolar ankle fracture LEFT Description of Procedure Patient brought to operating room #7. A general anesthetic was administered. He was sterilely prepped and draped in usual manner. He had very large legs. This made it very difficult to do the procedure. A longitudinal incision made. Dissection carried down to the fibula. I began laterally. The fracture was identified held together with lobster claw. An 8 hole plate was then placed. It was very difficult, almost impossible to place an interfragmentary screw, because of the angle of the fracture. I then proceeded medially. Dissection carried down to the fracture. A 4-0 cannulated screw placed. X-rays in the mortise and lateral planes demonstrate near anatomic alignment of the fracture. Fracture was checked for stability under the C-arm. A noted to be stable. Estimated Blood Loss 150 Urine Output 430 Packing No Pathology None sent Complications No immediate complications Condition Stable Disposition PACU AM Billing Surgery - Charge Forward: Surgery Billing ([id number] ORIF Bimalleolar Ankle Fracture) Imaging Radiologist's impression: ITS Impressions Tibia/Fibula X-Ray 10/05/24 05:31 Impression: Displaced bimalleolar fractures at the ankle, as detailed above. Ankle X-Ray 10/05/24 05:32 Impression: Acute, displaced bimalleolar fractures, with significant derangement of the ankle mortise, as detailed above. Foot X-Ray 10/05/24 05:33 Impression: No acute abnormality in the foot itself. Bimalleolar fractures at the ankle are noted. Please see separately reported ankle radiographic series for further details. Discharge Plan Discharge Attending physician on discharge: Pedro Benavides Consulting providers: Shravan Law Discharging Clinician: Pedro Benavides Anticipated Discharge Date/Time: 10/07/24 12:07 Patient Disposition: Home Activity: follow weight bearing status Diet: as tolerated Wound Care Instructions: keep dressing dry Discharge Instructions: Non weight bearing Keeps dressing dry Patient Instructions: Antibiotic Form Patient Language: Croatian Stand Alone Forms: General Discharge Information Follow-up/Referrals: Shravan Law MD [Physician] - PHYSICIAN,SLATE SPLITTER [Primary Care Provider] - 1 Week Discharge Medications: New hydrocodone-acetaminophen 7.5-325 mg tablet 1 tablet PO Q4H PRN (Reason: pain) Qty: 40 0RF albuterol sulfate 90 mcg/actuation aerosol powdr breath activated 2 inh inhalation Q4H PRN (Reason: shortness of breath or wheezing) Qty: 1 0RF azithromycin 500 mg tablet 500 mg PO DAILY 2 Days Qty: 2 0RF Rx Instructions: start on day 2 of therapy Continued aspirin 81 mg capsule 81 mg PO DAILY atorvastatin [Lipitor] 40 mg tablet 40 mg PO DAILY Date of admission: 10/05/24 06:15 Primary Care Provider: PHYSICIAN,SLATE SPLITTER Admitting Provider: John Nix Attending physician on admission: John Nix Condition: Improved
--- NOTE | 2024-10-07 14:51 | PC.NURSE ---
Pt requested Percocet for pain for discharge. Dr Law called to ask for change of [place] to Percocet. He said he will not give a different order for pain medication.
--- NOTE | 2024-10-07 15:12 | PC.NURSE ---
Spoke with the charge nurse to request help in resolving the problem with patient's pain control & medications.
== END 2024-10-07 15:50 | disposition home or self-care (01) ==
LOC: ANHED 05:38 → ANH3MEDSUR 06:42
PROVIDERS: Hospitalist; Orthopaedic Surgery; Admitting Provider General Practice; Emergency Provider Emergency Medicine; Visit Provider Internal Medicine
PROC: (CPT 27814; principal; 2024-10-05 12:30)
DX: S82.842A Displaced bimalleolar fracture of left lower leg, initial encounter for closed fracture (principal); W17.89XA Other fall from one level to another, initial encounter; J20.8 Acute bronchitis due to other specified organisms; B96.89 Other specified bacterial agents as the cause of diseases classified elsewhere; J45.909 Unspecified asthma, uncomplicated; E87.1 Hypo-osmolality and hyponatremia; D64.9 Anemia, unspecified; E66.9 Obesity, unspecified; Z68.31 Body mass index [BMI] 31.0-31.9, adult; Z87.891 Personal history of nicotine dependence; Z79.82 Long term (current) use of aspirin; Z79.899 Other long term (current) drug therapy
CPT/HCPCS: 27814; 36415; 73590; 73610; 73630; 80048; 80053; 83735; 85025; 86850; 86900; 86901; 94640; 96361; 96365; 96374; 96375; 96376; 97116; 97161; 99199; 99285; A9270; C1713; C1769; G0378; G0379; J0456; J0690; J1100; J1171; J2250; J2270; J2405; J2704; J3010; J7030; J7120; L2116